=== PATIENT | female | born 1980 | race African-American/Black ===

== ENCOUNTER 2018-08-02 09:40 | Emergency (ER) | payer OTHER ==
[~2018-08-02] VITALS: Ht 165.1 cm; Wt 91.6 kg
[~2018-08-02 09:40] MED LIST: AMBIEN10 MG PO; DESOGESTREL MT; ETHINYL ESTRADIOL MT; LISINOPRIL10 MG PO; NIFEDIPINE10 MG PO; NORCO 7.5-3251 EACH PO; TRIAMTERENE-HCTZ1 EA PO; Z ALPRAZOLAM MT; Z.0.ADDERALL XR 3030 MT
--- OUTSIDE RECORDS SUMMARY | 2018-08-02 09:44 | XMS REPORT | Continuity of Care Document ---
Author Author [facility] Address Unknown Phone Unavailable Problems Problem Status Onset Date Classification Date Reported Comments Source R10.9 - UNSPECIFIED ABDOMINAL PAIN Active 09/06/2016 [facility] 847.0 - SPRAIN OF NECK Active 10/06/2014 [facility] 721.1 - CERV SPONDYL W Active 05/07/2014 [facility] [place] RT|LT PARAVERTEBRAL FACET INJECTION WITH IMAGE GUIDANCE Active 07/29/2013 Condition 09/25/2013 [facility] RT|LT PARAVERTEBRAL FACET INJECTION WITH IMAGE GUIDANCE Active 07/29/2013 Condition 09/25/2013 [facility] PAIN IN JOINT, MULTIPLE SITES Active 07/16/2013 Condition 09/25/2013 [facility] PREVENTIVE HEALTH CARE Active 07/16/2013 Condition 09/25/2013 [facility] DEGENERATIVE DISC DISEASE, LUMBAR SPINE Active Condition 09/25/2013 [facility] NECK PAIN Active Condition 09/25/2013 [facility] MYOFASCIAL PAIN SYNDROME Active Condition 09/25/2013 [facility] WEAKNESS Active Condition 09/25/2013 [facility] LUMBAR RADICULOPATHY Active Condition 09/25/2013 [facility] SPONDYLOSIS, LUMBAR Active Condition 09/25/2013 [facility] ANKLE SPRAIN Active Condition 09/25/2013 [facility] MUSCLE STRAIN, LEFT CALF Active Condition 09/25/2013 [facility] ANKLE PAIN, LEFT Active Condition 09/25/2013 [facility] Back pain Problem 09/28/2013 [facility] Back pain Problem 07/31/2013 [facility] Medications Medication Details Route Status Patient Instructions Ordering Provider Order Date Source TRAMADOL HCL 50 MG TABS take 1 po q 6-8 hours prn pain Active 08/13/2013 [facility] ZIPSOR 25 MG CAPS take 1 capsule po 4 times daily prn pain Active 08/13/2013 [facility] Misc Medication 772.6 mL, Soln-IV, IV, Once, first dose 07/29/13 12:11:31 [employer], stop date 07/29/13 12:11:31 [employer] IV Completed Lewis ORELLANA 07/29/2013 [facility] midazolam 2 mg=2 mL, Injection, IV, Once, first dose 07/29/13 12:00:00 [employer], stop date 07/29/13 12:00:00 [employer] IV Completed Lewis ORELLANA 07/29/2013 [facility] fentanyl 50 mcg=1 mL, Injection, IV, Once, first dose 07/29/13 11:57:00 [employer], stop date 07/29/13 11:57:00 [employer] IV Completed Lewis ORELLANA 07/29/2013 [facility] midazolam 1 mg=1 mL, Injection, IV, Once, first dose 07/29/13 11:57:00 [employer], stop date 07/29/13 11:57:00 [employer] IV Completed Lewis ORELLANA 07/29/2013 [facility] fentanyl 50 mcg=1 mL, Injection, IV, Once, first dose 07/29/13 11:54:00 [employer], stop date 07/29/13 11:54:00 [employer] IV Completed Lewis ORELLANA 07/29/2013 [facility] midazolam 1 mg=1 mL, Injection, IV, Once, first dose 07/29/13 11:54:00 [employer], stop date 07/29/13 11:54:00 [employer] IV Completed Lewis ORELLANA 07/29/2013 [facility] Lidocaine 2% 0.2 mL IV Start [[facility]] 0.2 mL, Injection, Subcutaneous, Once PRN for other (see comment), first dose 07/29/13 10:20:00 [employer] Subcutaneous Completed Marilou 07/29/2013 [facility] LR 1,000 mL 1,000 mL, IV, 30 mL/hr, start date 07/29/13 10:20:00 [employer] IV No Longer Active Kenneth 07/29/2013 [facility] Lunesta 3 mg oral tablet 3 mg=1 tabs, Oral, qHS, PRN for insomnia, 0 Refill(s), SLEEP Active 07/26/2013 [facility] [place]ows 5 mg-325 mg oral tablet 1 tabs, Oral, q4hr, PRN for pain, 0 Refill(s), PAIN Active 07/26/2013 [facility] Skelaxin 800 mg oral tablet mg tabs, Oral, TID, 0 Refill(s), MUSCLE RELAXANT Active 07/26/2013 [facility] gabapentin 300 mg oral capsule mg caps, Oral, TID, 0 Refill(s), NERVES Active 07/26/2013 [facility] NEURONTIN 300 MG CAPS 1 PO QHS for 5 days, then BID for 5 days, then TID Active 07/23/2013 [facility] ALEVE TABS per other M.D. No Longer Active 07/16/2013 [facility] IBUPROFEN CAPS OTC No Longer Active 07/16/2013 [facility] TIGER BALM ARTHRITIS RUB CREA OTC Active 07/16/2013 [facility] TYLENOL TABS OTC No Longer Active 07/16/2013 [facility] DAVID PAIN RELIEVING PATCH 3-10 % PADS OTC Active 07/16/2013 [facility] AMITRIPTYLINE HCL 25 MG TABS 1 PO QHS No Longer Active 07/16/2013 [facility] NORCO 5-325 MG TABS 1 PO 2-3 times a day prn pain Active 07/16/2013 [facility] FLEXERIL 10 MG TABS 1 PO TID prn muscle spasm Inactive 07/16/2013 [facility] SKELAXIN 800 MG TABS 1 PO TID per muscle spasm Active 07/16/2013 [facility] MUSCULOSKELETAL PAIN, INFLAMMATION Ketamine 10%, Flurbiprofen 10%, Baclofen 2%, Orphenadrine 3%, Gabapentin 6%, and Bupivacaine 2% Apply 1-2 grams to affected area 3-4 times per day as needed Active 07/16/2013 [facility] PROTONIX 20 MG TBEC per other M.D. Active 06/25/2013 [facility] Allergies, Adverse Reactions, Alerts Substance Category Reaction Severity Reaction type Status Date Reported Comments Source Immunizations Immunization Date Given Site Status Last Updated Comments Source heptavalent pneumococcal conjugate vaccine (7-valent) #1 07/26/2013 completed [facility] heptavalent pneumococcal conjugate vaccine (7-valent) #2 07/26/2013 completed [facility] Results Order Name Results Value Reference Range Date Interpretation Comments Source Pelvis Complete US Pelvis Complete US Study: Pelvis Complete US Clinical Indication: abdominal pelvic pain, mid to left low abdominal pain Comparison: None US PELVIS Technique: Grayscale, color and Doppler transabdominal imaging of the pelvis was performed with standard technique. FINDINGS: TRANSABDOMINAL PELVIC ULTRASOUND: The uterus is anteverted in position and measures 7.6 x 3.4 x 4.6 cm. The uterine myometrium is normal in echotexture and no definitive fibroid is seen. TRANSVAGINAL PELVIC ULTRASOUND: Endometrial stripe measures 4.5 mm in thickness. Intrauterine device within the endometrial canal is seen. Right ovary is not well-visualized. Anechoic 1.4 x 1.0 x 1.4 cm left ovarian cyst is seen. Left ovary is normal in vascularity. The left ovary measures 3.2 x 2.2 x 2.5 cm. No significant free fluid is noted in the pelvic cul-de-sac. IMPRESSION: 1. Intrauterine device in position within the endometrial canal. 2. Nonvisualization of the right ovary. 3. Simple appearing 1.4 x 1 x 1.4 cm left ovarian cyst which may represent dominant follicle or corpus luteal cyst. SL: [id number] 09/09/2016 - - Read by: Reynaldo Goodwin MD Dictated Date/time: 09/09/16 10:48 Electronically Signed by: Reynaldo Goodwin MD 09/09/16 10:49 FINAL REPORT [facility] Abdomen complete US Abdomen complete US Study: Abdomen complete US Clinical Indication: abdominal pain, mid to left lower abdominal pain for couple of months Comparison: None TECHNIQUE: Grayscale and limited color sonographic evaluation of the abdomen was performed with standard technique. FINDINGS: The liver is echogenic.The visualized portions of the pancreas are unremarkable. The visualized portions of the abdominal aorta and IVC are unremarkable. The gallbladder is normal and without stones or sludge. There is no biliary duct dilatation. Common bile duct measures 4.6 mm. The bilateral kidneys are normal in size and echotexture without stones or hydronephrosis. The right kidney measures 12.1 x 4 x 5.1 cm. The left kidney measures 12.4 x 5.1 x 4 cm. The spleen is normal in size and echotexture measuring 9.9 x 3.6 x 4 cm. The main portal vein is patent and with hepatopedal flow. No free fluid is noted. IMPRESSION: 1. Echogenic liver, compatible with fatty infiltration or fibrosis. SL: [id number] 09/09/2016 - - Read by: Reynaldo Goodwin MD Dictated Date/time: 09/09/16 09:59 Electronically Signed by: Reynaldo Goodwin MD 09/09/16 10:00 FINAL REPORT [facility] LABORATORY urine beta hcg Negative, Control Present (07/29/2013 11:47:00) 07/29/2013 [facility] Vital Signs Vital Sign Value Date Comments Source Diastolic (mm Hg) 90 07/29/2013 [facility] Systolic (mm Hg) 141 07/29/2013 [facility] Heart Rate 73 07/29/2013 [facility] Respitory Rate 16 07/29/2013 [facility] Systolic (mm Hg) 118 07/29/2013 [facility] Diastolic (mm Hg) 72 07/29/2013 [facility] Respitory Rate 16 07/29/2013 [facility] Heart Rate 65 07/29/2013 [facility] Systolic (mm Hg) 115 07/29/2013 [facility] Diastolic (mm Hg) 79 07/29/2013 [facility] Heart Rate 63 07/29/2013 [facility] Respitory Rate 16 07/29/2013 [facility] Heart Rate 65 07/29/2013 [facility] Temperature Oral (F) 37.5 Ban 07/29/2013 [facility] Heart Rate 73 07/29/2013 [facility] Heart Rate 80 07/29/2013 [facility] Height 165 cm 07/29/2013 [facility] Weight 108.9 07/29/2013 [facility] Temperature Oral (F) 37 Ban 07/29/2013 [facility] Body Mass Index 40.00 07/29/2013 [facility] Height 165.1 cm 07/26/2013 [facility] Body Mass Index 39.94 07/26/2013 [facility] Weight 108.86 07/26/2013 [facility] Height 65 07/16/2013 [facility] Weight 236 07/16/2013 [facility] Systolic (mm Hg) 141 07/16/2013 [facility] Diastolic (mm Hg) 88 07/16/2013 [facility] Heart Rate 65 07/16/2013 [facility] Encounters Location Location Details Encounter Type Encounter Number Reason For Visit Attending Provider ADM Date DC Date Status Source [facility] Report [id number] Ximena Cooper MD 07/16/2013 07/16/2013 [facility] Report [id number] Ximena Cooper MD 07/19/2013 07/19/2013 [facility] Office Office Visit [id number] Ximena Cooper MD 07/23/2013 07/23/2013 [facility] Office Office Visit [id number] Ximena Cooper MD 07/26/2013 07/26/2013 [facility] Outpatient [id number] Ximena Cooper 07/29/2013 07/29/2013 Active [facility] Office Office Visit [id number] Ximena Cooper MD 08/13/2013 08/13/2013 [facility] Office Office Visit [id number] Osvaldo Renner DPM 09/25/2013 09/25/2013 [facility] Outpatient [id number] ANKLE PAIN // MUSCLE STRAIN Osvaldo Renner 09/26/2013 Active Surgical [facility] Outpatient Imaging [facility] Outpt Diag Services [id number] [facility] Vu 09/09/2016 09/10/2016 [facility] Procedures Procedure Code Date Perfomer Comments Source BREAST IMPLANTS 08/07/2009 [facility] LEFT HAND SURGERY <sup>1</sup> 1FB REMOVED FROM FINGER [facility]"
--- OUTSIDE RECORDS SUMMARY | 2018-08-02 09:44 | XMS REPORT | CCD ---
Author Author Auto Generated Organization [facility] Address Unknown Phone Unavailable Care Team Providers Care Elementary Reading Tutor Name Role Phone Ximena Cooper CP [phone] Allergies, Adverse Reactions, Alerts Substance Reaction Status No Known Allergies Active Problem List Condition Effective Dates Status Back pain Active Medications Medication Instructions Start Date End Date Status Misc Medication 772.6 mL, Soln-IV, IV, Once, first 07/29/2013 07/29/2013 Completed dose 07/29/13 12:11:31 SCIENTIFIC RESEARCH ASSOCIATE, stop date 07/29/13 12:11:31 [employer]ENTIFIC RESEARCH [employer]IATE Lunesta 3 mg oral 3 mg=1 tabs, Oral, qHS, PRN for 07/26/2013 08/09/2013 Ordered tablet insomnia, 0 Refill(s), SLEEP [place] 5 mg-325 mg 1 tabs, Oral, q4hr, PRN for pain, 0 07/26/2013 08/09/2013 Ordered oral tablet Refill(s), PAIN Skelaxin 800 mg oral mg tabs, Oral, TID, 0 Refill(s), 07/26/2013 08/09/2013 Ordered tablet MUSCLE RELAXANT gabapentin 300 mg mg caps, Oral, TID, 0 Refill(s), 07/26/2013 08/09/2013 Ordered oral capsule NERVES Lidocaine 2% 0.2 mL 0.2 mL, Injection, Subcutaneous, 07/29/2013 07/29/2013 Completed IV Start [[facility]] Once PRN for other (see comment), first dose 07/29/13 10:20:00 SCIENTIFIC RESEARCH ASSOCIATE LR 1,000 mL 1,000 mL, IV, 30 mL/hr, start date 07/29/2013 07/29/2013 Discontinued 07/29/13 10:20:00 SCIENTIFIC RESEARCH ASSOCIATE fentanyl 50 mcg=1 mL, Injection, IV, Once, 07/29/2013 07/29/2013 Completed first dose 07/29/13 11:54:00 SCIENTIFIC RESEARCH ASSOCIATE, stop date 07/29/13 11:54:00 SCIENTIFIC RESEARCH ASSOCIATE fentanyl 50 mcg=1 mL, Injection, IV, Once, 07/29/2013 07/29/2013 Completed first dose 07/29/13 11:57:00 SCIENTIFIC RESEARCH ASSOCIATE, stop date 07/29/13 11:57:00 SCIENTIFIC RESEARCH ASSOCIATE midazolam 1 mg=1 mL, Injection, IV, Once, 07/29/2013 07/29/2013 Completed first dose 07/29/13 11:57:00 SCIENTIFIC RESEARCH ASSOCIATE, stop date 07/29/13 11:57:00 SCIENTIFIC RESEARCH ASSOCIATE midazolam 1 mg=1 mL, Injection, IV, Once, 07/29/2013 07/29/2013 Completed first dose 07/29/13 11:54:00 SCIENTIFIC RESEARCH ASSOCIATE, stop date 07/29/13 11:54:00 SCIENTIFIC RESEARCH ASSOCIATE midazolam 2 mg=2 mL, Injection, IV, Once, 07/29/2013 07/29/2013 Completed first dose 07/29/13 12:00:00 SCIENTIFIC RESEARCH ASSOCIATE, stop date 07/29/13 12:00:00 SCIENTIFIC RESEARCH ASSOCIATE Vital Signs Most recent to oldest [Reference Range]: 1 2 3 Temperature Oral [35.8-37.3 DegC] 37 DegC (07/29/2013 10:54:00) Temperature Tympanic [36.6-38.1 DegC] 37.5 DegC (07/29/2013 12:10:00) Peripheral Pulse Rate [55-105 bpm] 73 bpm (07/29/2013 12:54:00) 73 bpm (07/29/2013 12:10:00) 80 bpm (07/29/2013 10:54:00) Heart Rate Monitored [60-100 bpm] 65 bpm (07/29/2013 12:40:00) 63 bpm (07/29/2013 12:30:00) 65 bpm (07/29/2013 12:20:00) Respiratory Rate [12-20] 16 (07/29/2013 12:54:00) 16 (07/29/2013 12:40:00) 16 (07/29/2013 12:30:00) SpO2 [90-100 %] 100 % (07/29/2013 12:54:00) 100 % (07/29/2013 12:40:00) 100 % (07/29/2013 12:30:00) Systolic Blood Pressure [110-120 mmHg] 141 mmHg *HI* (07/29/2013 12:54:00) 118 mmHg (07/29/2013 12:40:00) 115 mmHg (07/29/2013 12:30:00) Diastolic Blood Pressure [65-85 mmHg] 90 mmHg *HI* (07/29/2013 12:54:00) 72 mmHg (07/29/2013 12:40:00) 79 mmHg (07/29/2013 12:30:00) Mean Arterial Pressure, Cuff 87.3 mmHg (07/29/2013 12:40:00) 91 mmHg (07/29/2013 12:30:00) 87.3 mmHg (07/29/2013 12:20:00) Height 165 cm (07/29/2013 10:54:00) 165.1 cm (07/26/2013 07:57:00) Height/Length Dosing 165.00 cm (07/29/2013 10:54:00) 165.10 cm (07/26/2013 07:57:00) Height Inches 65 in (07/29/2013 10:54:00) 65 in (07/26/2013 07:57:00) Weight 108.9 kg (07/29/2013 10:54:00) 108.86 kg (07/26/2013 07:57:00) Weight Dosing 108.900 kg (07/29/2013 10:54:00) 108.860 kg (07/26/2013 07:57:00) Weight Pounds 240 lb (07/29/2013 10:54:00) 239 lb (07/26/2013 07:57:00) Body Mass Index 40.00 kg/m2 (07/29/2013 10:54:00) 39.94 kg/m2 (07/26/2013 07:57:00) Results LABORATORY Most recent to oldest [Reference Range]: 1 urine beta hcg Negative, Control Present (07/29/2013 11:47:00) Procedures Procedures Date Related Diagnosis BREAST IMPLANTS 2010 LEFT HAND SURGERY 1 1FB REMOVED FROM FINGER
--- OUTSIDE RECORDS SUMMARY | 2018-08-02 09:44 | XMS REPORT | Continuity of Care Document ---
Author Author [facility] Organization [facility] Address Unknown Phone Unavailable Care Team Providers Care Baby Stroller Rental Clerk Name Role Phone Kenneth RAYMUNDO, Ximena HIDALGO Unavailable Insurance Providers Payer name Policy type / Coverage type Policy ID Covered green party ID Policy [place] [employer] Encounters Encounter Performer Location Date Lab Report Ximena [facility] Jul 16, 2013 Problems Problem Effective Dates Problem Status PAIN IN JOINT, MULTIPLE SITES Jul 16, 2013 [facility] Jul 16, 2013 Active DEGENERATIVE DISC DISEASE, LUMBAR SPINE Active NECK PAIN Active MYOFASCIAL PAIN SYNDROME Active WEAKNESS Active LUMBAR RADICULOPATHY Active Medications Medication Instructions Start Date Status PROTONIX 20 MG TBEC per other M.D. Jun 25, 2013 Active ALEVE TABS per other M.D. Jul 16, 2013 Active IBUPROFEN CAPS OTC Jul 16, 2013 Active TIGER BALM ARTHRITIS RUB CREA OTC Jul 16, 2013 Active TYLENOL TABS OTC Jul 16, 2013 Active DAVID PAIN RELIEVING PATCH 3-10 % PADS OTC Jul 16, 2013 Active AMITRIPTYLINE HCL 25 MG TABS 1 PO QHS Jul 16, 2013 Active NORCO 5-325 MG TABS 1 PO 2-3 times a day prn pain Jul 16, 2013 Active FLEXERIL 10 MG TABS 1 PO TID prn muscle spasm Jul 16, 2013 Inactive SKELAXIN 800 MG TABS 1 PO TID per muscle spasm Jul 16, 2013 Active MUSCULOSKELETAL PAIN, INFLAMMATION Ketamine 10%, Flurbiprofen 10%, Baclofen 2%, Orphenadrine 3%, Gabapentin 6%, and Bupivacaine 2% Apply 1-2 grams to affected area 3-4 times per day as needed Jul 16, 2013 Active Vital Signs Date Description Test Result Jul 16, 2013 height E&M - 8302-2 HEIGHT 65 in Jul 16, 2013 weight E&M - 3141-9 WEIGHT 236 lb Jul 16, 2013 blood pressure, systolic - 8480-6 BP SYSTOLIC 141 mm Hg Jul 16, 2013 blood pressure, diastolic - 8462-4 BP DIASTOLIC 88 mm Hg Jul 16, 2013 pulse rate E&M - 8867-4 PULSE RATE 65 /min
--- OUTSIDE RECORDS SUMMARY | 2018-08-02 09:44 | XMS REPORT | Continuity of Care Document ---
Author Author [facility] Organization [facility] Address Unknown Phone Unavailable Care Team Providers Care Shipyard Painter Apprentice Name Role Phone Jud SUTTON, Osvaldo HIDALGO Unavailable Insurance Providers Payer name Policy type / Coverage type Policy ID Covered alliance party ID Policy [place] [employer] Encounters Encounter Performer Location Date Office Visit Osvaldo Renner DPM [facility] Sep 25, 2013 Problems Problem Effective Dates Problem Status PAIN IN JOINT, MULTIPLE SITES Jul 16, 2013 Active [facility] Jul 16, 2013 Active DEGENERATIVE DISC DISEASE, LUMBAR SPINE Active NECK PAIN Active MYOFASCIAL PAIN SYNDROME Active WEAKNESS Active LUMBAR RADICULOPATHY Active SPONDYLOSIS, LUMBAR Active RT|LT PARAVERTEBRAL FACET INJECTION WITH IMAGE GUIDANCE Jul 29, 2013 Active RT|LT PARAVERTEBRAL FACET INJECTION WITH IMAGE GUIDANCE Jul 29, 2013 Active ANKLE SPRAIN Active MUSCLE STRAIN, LEFT CALF Active ANKLE PAIN, LEFT Active Medications Medication Instructions Start Date Status PROTONIX 20 MG TBEC per other M.D. Jun 25, 2013 Active TIGER BALM ARTHRITIS RUB CREA OTC Jul 16, 2013 Active DAVID PAIN RELIEVING PATCH 3-10 % PADS OTC Jul 16, 2013 Active NORCO 5-325 MG [...] day as needed Jul 16, 2013 Active AMITRIPTYLINE HCL 25 MG TABS 1 PO QHS Jul 16, 2013 Inactive NEURONTIN 300 MG CAPS 1 PO QHS for 5 days, then BID for 5 days, then TID Jul 23, 2013 Active TYLENOL TABS OTC Jul 16, 2013 Inactive IBUPROFEN CAPS OTC Jul 16, 2013 Inactive ALEVE TABS per other M.D. Jul 16, 2013 Inactive TRAMADOL HCL 50 MG TABS take 1 po q 6-8 hours prn pain Aug 13, 2013 Active ZIPSOR 25 MG CAPS take 1 capsule po 4 times daily prn pain Aug 13, 2013 Active Immunizations Vaccine Date Status heptavalent pneumococcal conjugate vaccine (7-valent) #1 Jul 26, 2013 completed heptavalent pneumococcal conjugate vaccine (7-valent) #2 Jul 26, 2013 completed Vital Signs Date Description Test Result Jul 16, 2013 height E&M - 8302-2 HEIGHT 65 in Jul 16, 2013 weight E&M - 3141-9 WEIGHT 236 lb Jul 16, 2013 blood pressure, systolic - 8480-6 BP SYSTOLIC 141 mm Hg Jul 16, 2013 blood pressure, diastolic - 8462-4 BP DIASTOLIC 88 mm Hg Jul 16, 2013 pulse rate E&M - 8867-4 PULSE RATE 65 /min"
--- OUTSIDE RECORDS SUMMARY | 2018-08-02 09:44 | XMS REPORT | Continuity of Care Document ---
Author Author [facility] Organization [facility] Address Unknown Phone Unavailable Care Team Providers Care Neuro Urologist Name Role Phone Kenneth RAYMUNDO, Ximena HIDALGO Unavailable Insurance Providers Payer name Policy type / Coverage type Policy ID Covered republican ID Policy [place] [employer] Encounters Encounter Performer Location Date Lab Report Ximena [facility] Jul 19, 2013 Problems Problem Effective Dates Problem Status [...]
--- OUTSIDE RECORDS SUMMARY | 2018-08-02 09:44 | XMS REPORT ---
Author Author [facility] Address Unknown Phone Unavailable Care Team Providers Care Supervisor Stage Carpentry Name Role Phone Juvencio LYNCH Unavailable Unavailable Problems This patient has no known problems. Allergies, Adverse Reactions, Alerts This patient has no known allergies or adverse reactions. Medications This patient has no known medications. Results Test Description Test Time Test Comments Text Results Atomic Results Result Comments CTA CORONARY W or WO CALCIUM [place] [address] Patient Name: ESTRADA PERALES MR #: [id number] : 1980 Age/Sex: 36/F Req #: [id number] Adm Physician: Ordered by: ADI LYNCH MD Report #: [id number] Location: CT Room/Bed: Procedure: [id number] CT/CTA CORONARY W or WO CALCIUM Exam Date: 05/11/17 Exam Time: 0930 REPORT STATUS: Signed EXAM: CALCIUM SCORE AND CORONARY CTA INDICATION: COMPARISON: None. TECHNIQUE: Multi-detector CT technology was employed ( 64 MDCT Micreos). Minimal slice thickness with retrospective gating was performed following the intravenous administration of contrast material. The patient was premedicated with 0.4 mg sublingual nitroglycerin for coronary dilation. There was no need to administer beta blockers due to low heart rate during the exam. IV CONTRAST: 100 mL of Isovue-370 ORAL CONTRAST: None COMPLICATIONS: None RADIATION DOSE: Total DLP: 1448 mGy*cm Estimated effective dose: (DLP x 0.015 x size factor) mSv CTDIvol has been reviewed. It is below the limits set by the Radiation Protocol Committee (RPC). For optimization of anatomic evaluation, multiplanar reconstruction, maximum intensity projections, and advanced 3-D off-line postprocessing were performed on a dedicated stand-alone workstation under the direct supervision of the interpreting physician. QUALITY: Excellent FINDINGS: CALCIUM SCORE: The observed Agatston Calcium Score of 0.00. The Agatston score for ea ch vessel is as follows: LM: 0.00 LAD: 0.00 LCx: 0.00 RCA: 0.00 DISTRIBUTION OF THE CALCIFIED PLAQUES: No calcified plaques identified in the coronary arteries. CORONARY ANATOMY: There is normal origin of the coronary arteries. Left Main Coronary Artery: The left main is normal sized vessel that bifurcates into the LAD and circumflex. There is no evidence of atherosclerotic changes or stenotic disease. Left Anterior Descending Coronary Artery: The LAD is a normal size vessel that wraps around the apex. It gives rise to 2 acute diagonal branches. There is no evidence of atherosclerotic changes or stenotic disease. Left Circumflex Coronary Artery: The LCX is a normal size vessel, which is non-dominant. It gives rise to 3 obtuse marginal branches. There is no evidence of atherosclerotic changes or stenotic disease. Right Coronary Artery: The RCA is a normal size vessel, which is dominant. It gives rise to a conus branch, AV sony branch, and 3 acute marginal branches. In its distal segment it bifurcates into the PDA and PV branch. There is no evidence of atherosclerotic changes or stenotic disease. CARDIAC MORPHOLOGY AND FUNCTION: The right and left atria and ventricles are morphologically normal. LIMITED CHEST: Limited views of the visualized chest show no abnormality within chest wall and mediastinum. No mediastinal lymphadenopathy. The visualized lungs are clear. The visualized portions of the ascending and descending thoracic aorta are of normal size. Partially visualized breast implants. Small hiatal hernia. LIMITED ABDOMEN: Limited images of the upper abdomen reveal no abnormalities of the visualized organs. BONES: No acute osseous abnormalities. IMPRESSION: 1. Total Agatston Calcium Score: 0.00, representing no calcified plaques in the coronary arteries. 2. Normal coronary anatomy without evidence of atherosclerotic changes or stenotic disease. 3. Small hiatal hernia. Signed by: Dr. Susie Shore M.D. on 05/12/2017 4:51 PM Dictated By: SUSIE SHORE MD 52 Transcribed By: CASTRO on 05/12/171650 COPY TO: ADI LYNCH MD
--- OUTSIDE RECORDS SUMMARY | 2018-08-02 09:44 | XMS REPORT | Continuity of Care Document ---
Author Author [facility] Organization [facility] Address Unknown Phone Unavailable Care Team Providers Care Contract Modeler Name Role Phone Kenneth RAYMUNDO, Ximena HIDALGO Unavailable Insurance Providers Payer name Policy type / Coverage type Policy ID Covered republican ID Policy [place] [employer] Encounters Encounter Performer Location Date Office Visit Ximena Cooper MD [facility] Jul 23, 2013 Problems Problem Effective Dates Problem Status PAIN IN JOINT, MULTIPLE SITES Jul 16, 2013 Active PREVENTIVE HEALTH CARE Jul 16, 2013 Active DEGENERATIVE DISC DISEASE, LUMBAR SPINE Active NECK PAIN Active MYOFASCIAL PAIN SYNDROME Active WEAKNESS Active LUMBAR RADICULOPATHY Active SPONDYLOSIS, LUMBAR Active Medications Medication Instructions Start Date Status [...] days, then TID Jul 23, 2013 Active Vital Signs Date Description Test [...]
--- OUTSIDE RECORDS SUMMARY | 2018-08-02 09:44 | XMS REPORT | Continuity of Care Document ---
Author Author [facility] Organization [facility] Address Unknown Phone Unavailable Care Team Providers Care Parcel Contractor Name Role Phone Kenneth RAYMUNDO, Ximena HIDALGO Unavailable Insurance Providers Payer name Policy type / Coverage type Policy ID Covered democrat ID Policy [place] [employer] Encounters Encounter Performer Location Date Office Visit Ximena Cooper MD [facility] Aug 13, 2013 Problems Problem Effective Dates Problem Status [...] WITH IMAGE GUIDANCE Jul 29, 2013 Active Medications Medication Instructions Start Date Status [...]
--- OUTSIDE RECORDS SUMMARY | 2018-08-02 09:44 | XMS REPORT | Continuity of Care Document ---
Author Author [facility] Organization [facility] Address Unknown Phone Unavailable Care Team Providers Care Marine Water Tender Name Role Phone Kenneth RAYMUNDO, Ximena HIDALGO Unavailable Insurance Providers Payer name Policy type / Coverage type Policy ID Covered green party ID Policy [place] [employer] Encounters Encounter Performer Location Date Office Visit Ximena Cooper MD [facility] Jul 26, 2013 Problems Problem Effective Dates Problem Status [...] per other M.D. Jul 16, 2013 Inactive Immunizations Vaccine Date Status heptavalent pneumococcal conjugate [...]
--- OUTSIDE RECORDS SUMMARY | 2018-08-02 09:44 | XMS REPORT | CCD ---
Author Author Auto Generated Organization [facility] Address Unknown Phone Unavailable Care Team Providers Care Quality Facilitator Name Role Phone Jud Osvaldo CP [phone] Allergies, Adverse Reactions, Alerts Substance Reaction Status No Known Allergies Active Problem List Condition Effective Dates Status Back pain Active Medications Medication Instructions Start Date End Date Status Lunesta 3 mg oral 3 mg=1 tabs, Oral, qHS, PRN for 07/26/2013 08/09/2013 Ordered tablet insomnia, 0 Refill(s), SLEEP [place] 5 mg-325 mg 1 tabs, Oral, q4hr, PRN for pain, 0 07/26/2013 08/09/2013 Ordered oral tablet Refill(s), PAIN Skelaxin 800 mg oral mg tabs, Oral, TID, 0 Refill(s), 07/26/2013 08/09/2013 Ordered tablet MUSCLE RELAXANT gabapentin 300 mg mg caps, Oral, TID, 0 Refill(s), 07/26/2013 08/09/2013 Ordered oral capsule NERVES
--- OUTSIDE RECORDS SUMMARY | 2018-08-02 09:44 | XMS REPORT | Summary of Care ---
Author Author [facility] Outpatient Imaging [facility] Outpatient Imaging [facility] Address Unknown Phone Unavailable Encounter HQ Encntr_alias(FIN) [id number] Date(s): 09/09/16 - 09/09/16 [facility] Outpatient Imaging [facility] [address] [place], [place] [address]- [phone] Discharge Disposition: Home or Self Care Attending Physician: Barbara Johnson MD Vital Signs No data available for this section Problem List No data available for this section Allergies, Adverse Reactions, Alerts No data available for this section Medications No data available for this section Results No data available for this section Immunizations No data available for this section Procedures No data available for this section Social History No data available for this section Assessment and Plan No data available for this section
[2018-08-02] MEDS ORDERED: LOSARTAN POTAS100 MG PO (10:03)
[2018-08-02] MEDS ORDERED: BYSTOLIC10 MG PO (10:03)
[2018-08-02 10:53] LABS: BASOPHILS # (AUTO) 0.1 (0.0-0.1); BASOPHILS % 0.6 % (0.0-1.0); EOSINOPHILS # (AUTO) 0.2 (0.0-0.4); EOSINOPHILS % 2.1 % (0.0-6.0); HEMOGLOBIN 13.9 g/dL (12.0-16.0); LYMPHOCYTES # (AUTO) 2.4 (1.0-3.2); LYMPHOCYTES % 28.1 % (18.0-39.1); MEAN CORPUSCULAR HEMOGLOBIN 28.5 pg (28-32); MEAN CORPUSCULAR HGB CONC 33.1 g/dL (31-35); MEAN CORPUSCULAR VOLUME 86.2 fL (81-99); MONOCYTES # (AUTO) 0.5 (0.2-0.8); MONOCYTES % 5.5 % (4.4-11.3); NEUTROPHILS # (AUTO) 5.3 (2.1-6.9); PLATELET COUNT 225 x10e3/uL (140-360); RED BLOOD COUNT 4.87 x10e6/uL (3.6-5.1)
[2018-08-02 10:58] LABS: INR 0.86; PROTHROMBIN TIME 12.5 seconds (11.9-14.5)
[2018-08-02 10:59] LABS: PARTIAL THROMBOPLASTIN TIME 30.4 seconds (23.8-35.5)
[2018-08-02 11:03] LABS: BILIRUBIN,URINE NEGATIVE (NEGATIVE); CLARITY,URINE CLEAR (CLEAR); COLOR,URINE YELLOW (YELLOW); KETONES,URINE NEGATIVE (NEGATIVE); LEUKOCYTE ESTERASE ,URINE NEGATIVE (NEGATIVE); NITRITE,URINE NEGATIVE (NEGATIVE); PROTEIN,URINE DIPSTICK NEGATIVE (NEGATIVE); URINE UROBILINOGEN 0.2 mg/dL (0.2 - 1)
[2018-08-02 11:04] LABS: PREGNANCY TEST, URINE NEGATIVE (NEGATIVE)
[2018-08-02 11:06] LABS: BACTERIA,URINE FEW /HPF; EPITHELIAL CELLS,URINE FEW /LPF; RBC,URINE 0-5 /HPF (0-5); WBC,URINE (MAN) 0-5 /HPF (0-5)
[2018-08-02 11:08] LABS: ALANINE AMINOTRANSFERASE 34 IU/L (0-55); ALBUMIN 4.4 g/dL (3.5-5.0); ALBUMIN/GLOBULIN RATIO 1.3 (0.8-2.0); ALKALINE PHOSPHATASE 74 IU/L (40-150); ANION GAP 12.7 mmol/L (8-16); BLOOD UREA NITROGEN 10 mg/dL (7-26); BUN/CREATININE RATIO 11 (6-25); CALCIUM 9.6 mg/dL (8.4-10.2); CARBON DIOXIDE 26 mmol/L (22-29); CHLORIDE 101 mmol/L (98-107); CREATINE KINASE 246 IU/L (29-168); CREATININE, SERUM 0.93 mg/dL (0.57-1.11); EST GLOMERULAR FILTRATION RATE > 60 ML/MIN (60-); GLUCOSE 124 mg/dL (74-118); LIPASE 14 U/L (8-78); MAGNESIUM 2.3 MG/DL (1.3-2.1); POTASSIUM 3.7 mmol/L (3.5-5.1); SODIUM 136 mmol/L (136-145)
--- NOTE | 2018-08-02 11:21 | NUR ---
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 C/O OF FLUTTERING THAT LASTED 6 SECONDS WHEN SHE GOT UP TO WALK TO [employer] CAN. THIS IS THE SAME EPISODES SHE HAS BEEN HAVING. DENIES ANY SHORTNESS OF BREATH OR CHEST PAIN
--- NOTE | 2018-08-02 11:42 | Diagnostic Imaging Report ---
EXAM: XR CHEST 2 VIEWS DATE: 08/02/2018 10:01 AM INDICATION: Chest pain COMPARISON: None FINDINGS: Lines and Tubes: None Heart and Mediastinum: No acute cardiomediastinal findings. Lungs and Pleura: Minimal basilar opacities. Bones and Soft Tissues: No acute findings. IMPRESSION: 1. Probable basilar atelectasis. Developing infectious process not excluded. Signed by: Dr. Ayden Doss MD on 08/02/2018 11:38 AM
== END 2018-08-02 16:23 | disposition home or self-care (01) ==
LOC: ER 09:40
DX: R07.89 Other chest pain (principal); I10 Essential (primary) hypertension
CPT/HCPCS: 36415; 71046; 80053; 81001; 81025; 82550; 82553; 83690; 83735; 84443; 84484; 85025; 85379; 85610; 85730; 93005; 99283

== ENCOUNTER → 2018-08-03 | Outpatient (CLI) | payer OTHER ==
[~2018-08-03] MED LIST changes: +BYSTOLIC10 MG PO; +IOPAMIDOL 370 MG/ML 200 ML INFUS..BTL INJ ONE; +LOSARTAN POTAS100 MG PO; +SODIUM CHLORIDE 0.9% 50ML 50 ML ONE
--- NOTE | 2018-08-03 19:32 | Diagnostic Imaging Report ---
CT chest pulmonary embolism protocol CPT code: 31518 INDICATION: Shortness of breath, chest pain, fluttering heart, pain in arms TECHNIQUE: Thin collimation axial images obtained through the level of the pulmonary arteries with additional imaging through the chest following the uneventful administration of 100 cc of low osmolar, nonionic intravenous contrast. Images reconstructed into coronal and sagittal MIPs for complete evaluation of the tortuous and overlapping pulmonary vascular structures and to reduce patient radiation dose. RADIATION DOSE: Total DLP: 636.8 mGy*cm Estimated effective dose: (DLP x 0.015 x size factor) mSv CTDIvol has been reviewed. It is below the limits set by the Radiation Protocol Committee (RPC). COMPARISON: Chest x-ray 06/02/2018; coronary CTA report 05/11/2017. FINDINGS: Pulmonary artery: Bolus of contrast in the pulmonary arteries is suboptimal. No filling defects are appreciated within the main, left, right, lobar or visualized segmental pulmonary arteries to suggest embolism. The main pulmonary artery measures 3 cm in diameter. Aorta: The thoracic aorta is not aneurysmal. No evidence for dissection. Lymph nodes: No enlarged axillary, supraclavicular, mediastinal, or hilar lymph nodes. Thyroid: Normal in size without mass in the visualized parenchyma.. Mediastinum: Normal in size. No pericardial effusion. The esophagus is collapsed. There is a tiny hiatal hernia. Lungs: Right Lung: No mass or infiltrate. Left Lung: No mass or infiltrate. Airways: No intraluminal filling defects. Pleura: No pleural effusion or pleural based mass.. Abdomen: Visualized portions of the upper abdomen are unremarkable. Bones: Mild scoliosis convex to the right. No focal osseous lesions. Soft tissues: Bilateral breast prostheses. IMPRESSION: 1. No evidence of pulmonary embolus or aortic dissection. 2. No pulmonary abnormalities to explain shortness of breath. Signed by: Dr. Ai Hanson MD on 08/03/2018 7:29 PM
== END ==
LOC: CT 17:08
PROVIDERS: ATTEND Internal Medicine
DX: R06.02 Shortness of breath (principal)
CPT/HCPCS: 71260; Q9967

== ENCOUNTER 2022-04-08 16:38 | Emergency (ER) | payer OTHER ==
[~2022-04-08] VITALS: Ht 165.1 cm; Wt 112.5 kg
[~2022-04-08 16:38] MED LIST changes: -IOPAMIDOL 370 MG/ML 200 ML INFUS..BTL INJ ONE; +LANSOPRAZOLE30 MG; +LASIX20 MG PO; +METFORMIN HCL500 M2 PO; -SODIUM CHLORIDE 0.9% 50ML 50 ML ONE; +SPIRONOLACTONE25 MG PO
[2022-04-08 19:02] LABS: BASOPHILS % 0.3 % (0.0-1.0); EOSINOPHILS # (AUTO) 0.1 (0.0-0.4); EOSINOPHILS % 1.1 % (0.0-6.0); HEMOGLOBIN 13.2 g/dL (12.0-16.0); LYMPHOCYTES # (AUTO) 1.8 (1.0-3.2); LYMPHOCYTES % 17.5 % (18.0-39.1); MEAN CORPUSCULAR HEMOGLOBIN 28.5 pg (28-32); MEAN CORPUSCULAR VOLUME 86.4 fL (81-99); MONOCYTES # (AUTO) 0.6 (0.2-0.8); MONOCYTES % 6.1 % (4.4-11.3); NEUTROPHILS # (AUTO) 7.6 (2.1-6.9); NEUTROPHILS % 74.1 % (38.7-80.0); PLATELET COUNT 258 x10e3/uL (140-360); RED BLOOD COUNT 4.63 x10e6/uL (3.6-5.1); RED CELL DISTRIBUTION WIDTH 13.3 % (11.7-14.4)
[2022-04-08 19:20] LABS: ALBUMIN 4.3 g/dL (3.5-5.0); ALBUMIN/GLOBULIN RATIO 1.2 (0.8-2.0); ANION GAP 16.4 mmol/L (8-16); CALCIUM 9.4 mg/dL (8.4-10.2); CREATININE, SERUM 0.83 mg/dL (0.57-1.11); POTASSIUM 4.4 mmol/L (3.5-5.1)
[2022-04-08] MEDS ORDERED: PROGESTERONE100 MG PO (21:29)
[2022-04-08 21:58] VITALS: BP 107/72
== END 2022-04-08 22:05 | disposition home or self-care (01) ==
LOC: ER 17:38
DX: N93.8 Other specified abnormal uterine and vaginal bleeding (principal)
CPT/HCPCS: 36415; 76830; 76856; 80053; 84702; 85025; 86850; 86900; 99284